=== PATIENT | female | born 1950 | race Caucasian/White ===

== ENCOUNTER 2018-03-23 11:08 | Emergency (ER) | payer MEDICARE ==
[2018-03-23 11:50] VITALS: BP 113/43
--- NOTE | 2018-03-23 12:10 | UC ---
Complaint Female HPI - HPI Summary HPI Summary: pt c/o sudden onset of urinary frequency and urgency and generalized malaise. - History Of Current Complaint Chief Complaint: UCGeneralIllness Stated Complaint: URINARY/BACK PAIN Time Seen by Provider: 03/23/18 12:05 Hx Obtained From: Patient ?: No Onset/Duration: Sudden Onset, Lasting Days, Still Present Timing: Constant Severity Initially: Mild Severity Currently: Moderate Pain Intensity: 8 Character: Cramping, Colicy Aggravating Factor(s): Urination Alleviating Factor(s): Nothing Associated Signs And Symptoms: Positive: Back Pain - Risk Factors Ectopic Risk Factor: Negative Ovarian Torsion Risk Factor: Negative - Allergies/Home Medications Allergies/Adverse Reactions: Allergies Allergy/AdvReac Type Severity Reaction Status Date / Time No Known Allergies Allergy Verified 03/23/18 11:43 Home Medications: Home Medications Amlodipine Besylate [Amlodipine 2.5 mg tab] 2.5 mg PO DAILY 03/23/18 [History Confirmed 03/23/18] Aspirin 325 mg PO DAILY 03/23/18 [History Confirmed 03/23/18] Atorvastatin* [Lipitor 40 MG*] 40 mg PO DAILY 03/23/18 [History Confirmed ] Folic Acid 1 mg PO DAILY 03/23/18 [History Confirmed 03/23/18] Furosemide 40 mg PO DAILY 03/23/18 [History Confirmed 03/23/18] Lisinopril 40 mg PO DAILY 03/23/18 [History Confirmed 03/23/18] Metoprolol Tartrate 50 mg PO DAILY 03/23/18 [History Confirmed 03/23/18] Naproxen [Naproxen 500 mg tab] 500 mg PO DAILY 03/23/18 [History Confirmed 03/23] Omeprazole 20 mg PO DAILY 03/23/18 [History Confirmed 03/23/18] Spironolactone 25 mg PO DAILY 03/23/18 [History Confirmed 03/23/18] buPROPion HCl [Bupropion Xl] 150 mg PO DAILY 03/23/18 [History Confirmed ] traZODone TAB* [Desyrel TAB*] 50 mg PO DAILY 03/23/18 [History Confirmed ] PMH/Surg Hx/FS Hx/Imm Hx Previously Healthy: Yes Cardiovascular History: Cardiac Disease, Hypertension - Surgical History Surgical History: Yes Surgery Procedure, Year, and Place: CABG X3. BREAST REDUCTION - Family History Known Family History: Positive: Cardiac Disease - Social History Occupation: Retired Lives: With Family Alcohol Use: Rare Substance Use Type: None Smoking Status (MU): Light Every Day Tobacco Smoker Have You Smoked in the Last Year: Yes Review of Systems All Other Systems Reviewed And Are Negative: Yes Constitutional: Positive: Fatigue Skin: Positive: Negative Eyes: Positive: Negative ENT: Positive: Negative Respiratory: Positive: Negative Cardiovascular: Positive: Negative Gastrointestinal: Positive: Abdominal Pain Genitourinary: Positive: Frequency, Urgency Motor: Positive: Negative Neurovascular: Positive: Negative Musculoskeletal: Positive: Negative Neurological: Positive: Negative Psychological: Positive: Negative Is Patient Immunocompromised?: No Physical Exam Triage Information Reviewed: Yes Appearance: Other: - unkempt Vital Signs: Initial Vital Signs Temp 97.2 F 03/23/18 11:39 Pulse 63 03/23/18 11:39 Resp 19 03/23/18 11:39 BP 113/43 03/23/18 11:39 Pulse Ox 98 03/23/18 11:39 Vital Signs Reviewed: Yes Eye Exam: Normal ENT: Positive: Hearing grossly normal Neck exam: Normal Respiratory Exam: Normal Respiratory: Positive: Normal breath sounds Cardiovascular Exam: Normal Abdomen Description: Positive: Nontender Musculoskeletal Exam: Normal Neurological Exam: Normal Psychological Exam: Normal Skin Exam: Normal Complaint Female Dx - Differential Dx/Diagnosis Differential Diagnosis/HQI/PQRI: Urinary Tract Infection Provider Diagnosis: UTI (urinary tract infection) Discharge - Sign-Out/Discharge Documenting (check all that apply): Patient Departure All imaging exams completed and their final reports reviewed: No Studies - Discharge Plan Condition: Stable Disposition: HOME Prescriptions: Cephalexin CAP* [Keflex 500 CAP*] 500 mg PO Q8H #21 cap Patient Education Materials: Urinary Tract Infection in Women (ED) Referrals: Anne Delong NP [Primary Care Provider] - As Soon As Possible - Billing Disposition and Condition Condition: STABLE Disposition: Home - Attestation Statements Provider Attestation: I was available for consult. This patient was seen by the [facility]. The patient was not presented to, seen by, or examined by me. EK
--- NOTE | 2018-03-25 07:26 | UC ---
- Progress Note Progress Note: urine culture no growth pt had 2+ LE no change to tx Ljj 03/25/18 Course/Dx - Diagnoses Provider Diagnoses: UTI (urinary tract infection) Discharge - Sign-Out/Discharge Documenting (check all that apply): Post-Discharge Follow Up All imaging exams completed and their final reports reviewed: No Studies - Discharge Plan Condition: Stable Disposition: HOME Prescriptions: Cephalexin CAP* [Keflex 500 CAP*] 500 mg PO Q8H #21 cap Patient Education Materials: Urinary Tract Infection in Women (ED) Referrals: Anne Delong NP [Primary Care Provider] - As Soon As Possible - Billing Disposition and Condition Condition: STABLE Disposition: Home
== END 2018-03-23 12:16 | disposition home or self-care (01) ==
LOC: UCCORT 11:08
DX: N39.0 Urinary tract infection, site not specified (principal); I51.9 Heart disease, unspecified; F17.210 Nicotine dependence, cigarettes, uncomplicated
CPT/HCPCS: 81003; 87086; 99202; G0463